=== PATIENT | female | born 1980 | race Caucasian/White ===

== ENCOUNTER 2021-10-31 12:23 | Outpatient (CLI) | payer BC, SELFPAY ==
--- NOTE | 2021-10-31 13:31 | XR_ITS ---
WS: [id number] Left shoulder, 3 views, 10/31/2021 Clinical Data: L SHOULDER PAIN Comparison: None. Findings: No fractures or dislocations are seen. There is a small osteoarthritic spur of the lesser tuberosity. The AC joint is normal. The adjacent left clavicle, left scapula and ribs are normal. The soft tissu es are unremarkable. 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
== END 2021-10-31 12:24 | disposition home or self-care (01) ==
PROVIDERS: PCP Family Medicine; Visit Provider Family Medicine
DX: M25.512 Pain in left shoulder (principal)
CPT/HCPCS: 73030

== ENCOUNTER 2021-11-25 07:32 | Outpatient (CLI) | payer BC, SELFPAY ==
--- NOTE | 2021-11-25 07:41 | MM_ITS ---
WS: [id number] SCREENING 3D TOMOSYNTHESIS DIGITAL MAMMOGRAM WITH CAD HISTORY: SCREENING COMPARISON: None available. Bilateral CC and MLO views submitted. Computer aided detection analyzed. Breast composition: The breasts are heterogeneously dense, which may obscure small masses. 6 mm sligh tly spiculated asymmetry in the posterior central RIGHT breast seen only on the CC projection. There are a few additional scattered lymph nodes. There is a vessel seen on end in the medial posterior LEF T breast. MM/[place] [id number] IMPRESSION: BI-RADS: 0-Incomplete: Need additional imaging evaluation FOLLOW UP: Need Additional Imaging RIGHT breast: Spot compression views (CC ). True ML. Ultrasound to follow if ab normality persists.
== END 2021-11-25 07:33 | disposition home or self-care (01) ==
LOC: RADSHAW 07:32
PROVIDERS: PCP Family Medicine; Visit Provider Family Medicine
DX: Z12.31 Encounter for screening mammogram for malignant neoplasm of breast (principal)
CPT/HCPCS: 77063; 77067

== ENCOUNTER 2021-12-10 07:22 | Outpatient (CLI) | payer BC, SELFPAY ==
--- NOTE | 2021-12-10 07:26 | US_ITS ---
WS: [id number] ADDITIONAL VIEWS BILATERAL MAMMOGRAM BILATERAL BREAST ULTRASOUND HISTORY: ABNORMAL MAMMOGRAM COMPARISON: 11/25/2021 RIGHT MAMMOGRAM: Spot compression views and true ML. The 8 mm slightly irregular asymmetry persists at 12:00 in the posterior breast. Ultrasound will be p erformed. LEFT mammogram: Exaggerated LEFT lateral cc view is obtained. The partially seen nodule in the [employer] hand ior LEFT breast laterally corresponds to a well-circumscribed nodule measuring 8 mm. Bilateral BREAST ULTRASOUND, limited 2-D and color Doppler imaging submitted. RIGHT breast: Asymmetry seen in the posterior RIGHT breast cannot be identified with certainty. There is a normal appearance to the soft tissues. No shadowing or mass. LEFT breast: Towards the axillary tail of the LEFT breast is a well-circumscribed hypoechoic nodule m easuring 5 x 2 x 7 mm consistent with a lymph node. US/US breast BI limited* [id number] IMPRESSION: BI-RADS: 3-Probably Benign FOLLOW UP: 6 Month Follow-up 6 month diagnostic RIGHT mammogram follow-up and possible ultrasound to reevalu ate the probably benign asymmetry.
== END 2021-12-10 07:23 | disposition home or self-care (01) ==
PROVIDERS: PCP Family Medicine; Visit Provider Family Medicine
DX: R92.8 Other abnormal and inconclusive findings on diagnostic imaging of breast (principal)
CPT/HCPCS: 76642; 77061; 77062